=== PATIENT | male | born 1950 | race Two or more races ===

== ENCOUNTER 2021-09-10 14:16 | Emergency (ER) | payer OTHER ==
[~2021-09-10] VITALS: Ht 165.1 cm; Wt 158.8 kg
[2021-09-10] MEDS ORDERED: AMLODIPINE-OLM1 EACH PO (14:43)
[2021-09-10] MEDS ORDERED: KAPSPARGO SPRIN50 MG PO (14:44)
[2021-09-10] MEDS ORDERED: DIOVAN40 MG (14:44)
[2021-09-10] MEDS ORDERED: PAXIL40 MG (14:45)
[2021-09-10] MEDS ORDERED: PLAVIX75 MG PO (14:46)
[2021-09-10] MEDS ORDERED: TAMS0.4C PO (14:46)
[2021-09-10] MEDS ORDERED: PEPCID AC20 MG (14:46)
[2021-09-10] MEDS ORDERED: MULTI VITAMIN1 EACH PO (14:48)
[2021-09-10] MEDS ORDERED: ELIQUIS2.5 MG PO (14:48)
[2021-09-10] MEDS ORDERED: GABAPENTIN100 MG (14:48)
[2021-09-10] MEDS ORDERED: LEVOTHYROXINE88 MC1 PO (14:48)
== END 2021-09-11 00:34 | disposition home or self-care (01) ==
LOC: ER 14:16
DX: R10.31 Right lower quadrant pain (principal); R10.32 Left lower quadrant pain; N39.0 Urinary tract infection, site not specified; B96.29 Other Escherichia coli [E. coli] as the cause of diseases classified elsewhere